=== PATIENT | female | born 1975 | race African-American/Black ===

== ENCOUNTER 2024-06-26 08:49 | Emergency (ER) | payer BC, OTHER ==
[~2024-06-26] VITALS: Ht 154.9 cm; Wt 75.0 kg
[2024-06-26 09:04] VITALS: TEMP 97.3
[2024-06-26 09:42] LABS: BASOPHILS % (AUTO) 0.4 % (0.0-2.0); EOSINOPHILS % (AUTO) 2.5 % (1.0-6.0); HEMATOCRIT 41.6 % (36-46); HEMOGLOBIN 13.9 g/dL (12.0-16.0); LYMPHOCYTES # (AUTO) 2.6 K/uL (1.0-4.8); LYMPHOCYTES % (AUTO) 33.5 % (22.0-44.0); MEAN CORPUSCULAR HEMOGLOBIN 29.2 pg (26.0-34.0); MEAN CORPUSCULAR HGB CONC 33.4 G/dL (31.0-37.0); MEAN CORPUSCULAR VOLUME 87 fL (80-100); MONOCYTES # (AUTO) 0.6 K/uL (0.1-1.0); MONOCYTES % (AUTO) 7.8 % (2.0-9.0); NEUTROPHILS # (AUTO) 4.3 K/uL (1.8-7.7); NEUTROPHILS % (AUTO) 55.8 % (40.0-70.0); PLATELET COUNT (AUTO) 291 K/uL (150-450); RED BLOOD CELL COUNT(AUTO) 4.77 MIL/uL (4.00-5.20); WHITE BLOOD COUNT (AUTO) 7.6 K/uL (4.5-11.0)
[2024-06-26] MEDS: KETOROLAC TROMETHAMINE 30 MG/ML VIAL IVP ONE (09:44)
[2024-06-26] MEDS: methocarbamoL 500 MG TABLET PO ONE (09:44)
[2024-06-26 09:45] LABS: ANION GAP 8 mmol/L (8-16); CALCIUM, TOTAL 8.7 mg/dL (8.8-10.5); CARBON DIOXIDE 30 mmol/L (22-29); CHLORIDE 105 mmol/L (98-107); GLOMERULAR FILTR. RATE CALC > 60 mL/min (>60); GLUCOSE,RANDOM 99 mg/dL (70-110); POTASSIUM 3.7 mmol/L (3.5-5.1); SODIUM SERUM 142 mmol/L (136-145); UREA NITROGEN, BLOOD 13 mg/dL (7-18)
[2024-06-26 10:14] LABS: TROPONIN I-HIGH SENSITIVITY Less Than 4 ng/L (<51)
[2024-06-26] MEDS: LIDOCAINE 5% TRANSDERMAL PATCH TD ONE (10:57)
[2024-06-26] MEDS ORDERED: METH-659 PO (10:58)
[2024-06-26] MEDS ORDERED: IBUP-1492 PO (10:58)
[2024-06-26] MEDS ORDERED: LIDO-57 TP (10:58)
[2024-06-26 11:01] VITALS: BP 150/79; PULSE 73; RESP 11; O2SAT 100
== END 2024-06-26 11:21 | disposition home or self-care (01) ==
LOC: EMS 08:53
DX: M54.2 Cervicalgia (principal); R07.89 Other chest pain; M79.631 Pain in right forearm
CPT/HCPCS: 99285; 96374; 71045; 80048; 84484; 85025; 36415; 93005; J1885